=== PATIENT | male | born 1975 | race Caucasian/White ===

== ENCOUNTER 2017-09-25 10:19 | Emergency (ER) | payer BC, OTHER ==
[2017-09-25 11:02] VITALS: BP 130/91
--- NOTE | 2017-09-25 11:07 | UC ---
Cardiac HPI - HPI Summary HPI Summary: CHEST PAIN X 10 DAYS PAIN HAS BEEN CONSTANT , 5/10 , PRESSURED, RADIATING TO HIS JAW NO N/V/D/C , NO DIAPHORESIS, NO SOB NO COUGH , - History of Current Complaint Chief Complaint: UCChestPain Stated Complaint: CHEST PAIN Time Seen by Provider: 09/25/17 10:20 Hx Obtained From: Patient Onset/Duration: Gradual Onset, Lasting Days - 10, Still Present Timing: Constant Initial Severity: Moderate Current Severity: Moderate Pain Intensity: 2 Chest Pain Location: Left Anterior Character: Tightness Aggravating Factor(s): Nothing Alleviating Factor(s): Nothing Associated Signs & Symptoms: Positive: Chest Pain, Anxiety, Abdominal Pain. Negative: Vision Changes, Recent Stress, Headaches, Numbness, Tingling, Weakness , Dizziness, SOB, Swelling, Syncope, Fever, Diaphoresis, Nausea/Vomiting, Palpitations, Cough, Hemoptysis, Back Pain - Allergy/Home Medications Allergies/Adverse Reactions: Allergies Allergy/AdvReac Type Severity Reaction Status Date / Time latex Allergy Rash Verified 09/25/17 10:36 Home Medications: Home Medications Cyclobenzaprine TAB* [Flexeril 10 MG TAB*] 10 mg PO DAILY 09/25/17 [History Confirmed 09/25/17] Hydrocodone/APAP 5/300 (NF) [Vicodin 5 MG/300 MG(NF)] 1 tab PO ONCE PRN [History Confirmed 09/25/17] L.acidoph,Paracasei, B.lactis [Probiotic] 1 each PO DAILY 09/25/17 [History Confirmed 09/25/17] [place]-3 Fatty Acids/Fish Oil [Fish Oil 1,000 mg Softgel] 1,500 each PO DAILY [History Confirmed 09/25/17] Psyllium Husk/Aspartame [Metamucil Powder] 174 gm PO QPM 09/25/17 [History Confirmed 09/25/17] PMH/Surg Hx/FS Hx/Imm Hx - Additional Past Medical History Additional PMH: HIGH CHOLESTEROL Cardiovascular History: Hypertension - Surgical History Surgical History: None - Family History Known Family History: Positive: Hypertension - Social History Alcohol Use: Occasionally Substance Use Type: Marijuana Substance Use Comment - Amount & Last Used: today Smoking Status (MU): Former Smoker Review of Systems Constitutional: Negative Skin: Negative Eyes: Negative ENT: Negative Respiratory: Negative Cardiovascular: Chest Pain Gastrointestinal: Negative Genitourinary: Negative Is Patient Immunocompromised?: No All Other Systems Reviewed And Are Negative: Yes Physical Exam Triage Information Reviewed: Yes Appearance: Well-Appearing, No Pain Distress, Well-Nourished Vital Signs: Initial Vital Signs Temp 98.4 F 09/25/17 10:29 Pulse 84 09/25/17 10:29 Resp 18 09/25/17 10:29 BP 130/91 09/25/17 10:29 Pulse Ox 100 09/25/17 10:29 Vital Signs Reviewed: Yes Eyes: Positive: Conjunctiva Clear ENT: Positive: Normal ENT inspection, Hearing grossly normal, Pharynx normal Neck exam: Normal Neck: Positive: Supple, Nontender, No Lymphadenopathy Respiratory: Positive: Chest non-tender, Lungs clear, Normal breath sounds Cardiovascular: Positive: RRR, No Murmur, Pulses Normal Abdominal Exam: Normal Abdomen Description: Positive: Nontender, Soft. Negative: CVA Tenderness (R), CVA Tenderness (L), Distended, Guarding Bowel Sounds: Positive: Present Skin Exam: Normal Diagnostics - EKG Cardiac Rate: NL Cardiac Rhythm: Sinus: Normal Ectopy: None ST Segment: Normal - Assessment/Plan Course Of Treatment: WILL HAVE THE PT. GO TO [facility] FOR EVAL. AND TX OF CHEST PAIN - Clinical Impression Provider Diagnoses: CHEST PAIN Discharge - Discharge Plan Condition: Stable Disposition: HOME Patient Education Materials: Chest Pain (ED) Additional Instructions: normal EGG multiple risk factors including high cholesterol, HTN PLEASE GO TO [facility] FOR EVALUATION , MAY NEED TO HAVE BLOOD WORK DONE TO MAKE SURE THE CHEST PAIN IS NOT FROM YOUR HEART
== END 2017-09-25 10:58 | disposition home or self-care (01) ==
LOC: UCCORT 10:19
DX: R07.9 Chest pain, unspecified (principal)
CPT/HCPCS: 93005; 99212; G0463